=== PATIENT | female | born 1980 | race Caucasian/White ===

== ENCOUNTER 2017-01-30 11:46 | Emergency (ER) | payer OTHER ==
[~2017-01-30] VITALS: Ht 177.8 cm; Wt 128.0 kg
[2017-01-30] MEDS ORDERED: KETOROLAC 30 MG/1 ML ONE (12:17)
[2017-01-30] MEDS ORDERED: KETOROLAC 30 MG/1 ML IM ONE (12:30)
[2017-01-30 14:11] VITALS: BP 135/79
== END 2017-01-30 14:13 | disposition home or self-care (01) ==
LOC: ED 13:06
DX: S16.1XXA Strain of muscle, fascia and tendon at neck level, initial encounter (principal); S29.012A Strain of muscle and tendon of back wall of thorax, initial encounter; S39.012A Strain of muscle, fascia and tendon of lower back, initial encounter; V89.2XXA Person injured in unspecified motor-vehicle accident, traffic, initial encounter; Y93.89 Activity, other specified; Y92.89 Other specified places as the place of occurrence of the external cause; Y99.8 Other external cause status
CPT/HCPCS: 72020; 72050; 72072; 72110; 96372; 99284; J1885

== ENCOUNTER 2017-12-26 07:57 | Emergency (ER) | payer OTHER ==
[~2017-12-26] VITALS: Ht 177.8 cm; Wt 127.3 kg
[2017-12-26 08:11] VITALS: BP 170/117
== END 2017-12-26 11:51 | disposition home or self-care (01) ==
LOC: ED 10:03
DX: S82.51XA Displaced fracture of medial malleolus of right tibia, initial encounter for closed fracture (principal); S82.434A Nondisplaced oblique fracture of shaft of right fibula, initial encounter for closed fracture; W00.0XXA Fall on same level due to ice and snow, initial encounter; Y93.89 Activity, other specified; Y92.89 Other specified places as the place of occurrence of the external cause; Y99.8 Other external cause status
CPT/HCPCS: 29515; 99284

== ENCOUNTER → 2020-12-19 | Outpatient (CLI) | payer OTHER | END | disposition home or self-care (01) | LOC: CFH 10:43 | PROVIDERS: ATTEND Physician Assistant | DX: N20.0 Calculus of kidney (principal); N13.4 Hydroureter | CPT/HCPCS: 74176 ==

== ENCOUNTER 2021-07-03 13:24 | Outpatient (CLI) | payer OTHER | END 2021-07-03 23:59 | disposition home or self-care (01) | LOC: RAD 13:24 | PROVIDERS: ATTEND Physician Assistant Surgical | DX: N20.0 Calculus of kidney (principal); K57.30 Diverticulosis of large intestine without perforation or abscess without bleeding; N28.89 Other specified disorders of kidney and ureter; M47.817 Spondylosis without myelopathy or radiculopathy, lumbosacral region | CPT/HCPCS: 74176 ==